=== PATIENT | male | born 1940 | race Two or more races ===

== ENCOUNTER → 2021-05-31 | Outpatient (CLI) | payer MEDICARE ==
[~2021-05-31] MED LIST: CHOL5000 PO; METO-247 PO; SIMV40TA18 PO
== END ==
LOC: LAB 10:36
PROVIDERS: ATTEND Podiatrist
DX: Z01.818 Encounter for other preprocedural examination (principal); M21.41 Flat foot [pes planus] (acquired), right foot
CPT/HCPCS: 36415; 82306; 82310; 84134

== ENCOUNTER 2021-06-19 07:39 | Day surgery (SDC) | payer MEDICARE ==
[~2021-06-19] VITALS: Ht 165.1 cm; Wt 70.0 kg
[~2021-06-19 07:39] MED LIST changes: +HYDROmorphone 2 MG/ML VIAL IVP PRN; +IV RINGERS,LACTATED 1000ML 1,000 ML IV SCH; +MORPHINE SULFATE 2 MG/ML INJ. IVP PRN; +PROCHLORPERAZINE 10 MG/2 ML VIAL. IVP PRN; +ceFAZolin SODIUM IV Push 1 GM VIAL. IVP PRN; +fentaNYL PF VIAL 100 MCG/2 ML VIAL IVP PRN
[2021-06-19 08:10] VITALS: BP 203/86
--- NOTE | 2021-06-19 08:37 | PDOC1 ---
History and Physical Date of Admission Date of Admission DATE: 06/19/21 TIME: 08:25 Identification/Chief Complaint Chief Complaint Foot and ankle surgery Source Source: Chart review, Patient History of Present Illness History of Present Illness Patient 80-year-old male with past medical history HLD, HTN, chronic right ankle pain, who presents to outpatient surgical clinic for right ankle surgery, per Dr. Perez. Reports history of chronic ankle pain for a number of years is worse with ambulation. Today he has no specific concerns or complaints, except for some anxiety due to upcoming surgery. He is scheduled to undergo ambulatory surgery today for pes planus of his right foot and right ankle pain. Past Medical History Past Medical History HTN, HLD Past Surgical History Past Surgical History: Hernia Repair Family History Family History Denies significant family history Social History Smoke: No ALCOHOL: none Drugs: None Current Medications Current Medications Current Medications Fentanyl Citrate (Fentanyl 2ml Vial) 25 mcg PRN Q5MIN PRN IVP MILD PAIN 1-3; Start 06/19/21 at 06:00; Stop 06/19/21 at 20:00 Fentanyl Citrate (Fentanyl 2ml Vial) 50 mcg PRN Q5MIN PRN IVP MODERATE PAIN 4- 6; Start 06/19/21 at 06:00; Stop 06/19/21 at 20:00 Morphine Sulfate (Morphine Sulfate) 1 mg PRN Q10MIN PRN IVP SEVERE PAIN 7-10; Start 06/19/21 at 06:00; Stop 06/19/21 at 20:00 Ringer's Solution 1,000 ml @ 30 mls/hr Q24H IV Last administered on 06/19/21at 08:23; Start 06/19/21 at 06:00; Stop 06/19/21 at 17:59 Hydromorphone HCl (Dilaudid) 0.5 mg PRN Q10MIN PRN IVP SEVERE PAIN 7-10, 2nd CHOICE; Start 06/19/21 at 06:00; Stop 06/19/21 at 20:00 Prochlorperazine Edisylate (Compazine) 5 mg PACU PRN PRN IVP NAUSEA, MRX1; Start 06/19/21 at 06:00; Stop 06/19/21 at 20:00 Cefazolin Sodium/ Dextrose 50 ml @ 100 mls/hr 1X PREOP PRN IV PRIOR TO PROCEDURE; Start 06/19/21 at 06:00; Stop 06/19/21 at 18:00; Status Cancel Cefazolin Sodium (Ancef) 1 gm 1X PREOP PRN IVP PRIOR TO PROCEDURE; Start 06/19/21 at 06:00 Active Scripts Active Reported Vitamin D3 (Vitamin D) 125 Mcg Capsule 50,000 Mcg PO WEEKLY 5,000 UNITS = 125 MCG Simvastatin 40 Mg Tablet 40 Mg PO DAILY Metoprolol Succinate ( Xl ) (Metoprolol Succinate) 100 Mg Tab.er.24h 100 Mg PO DAILY Allergies Allergies: Coded Allergies: No Known Drug Allergies (Unverified , 06/19/21) ROS Review of System GENERAL: No history of weight change, weakness or fevers. SKIN: No bruising, hair changes or rashes. EYES: No blurred, double or loss of vision. NOSE AND THROAT: No history of nosebleeds, hoarseness or sore throat. HEART: Denies chest pain, denies palpitations. LUNGS: Denies cough, hemoptysis, wheezing or shortness of breath. GASTROINTESTINAL: Denies nausea, vomiting, abdominal pain. GENITOURINARY: Denies dysuria, frequency, urgency, hematuria. NEUROLOGIC: Denies history of numbness, tingling, tremor or weakness. PSYCHIATRIC: Denies anxiety, denies depression. ENDOCRINE: No history of heat or cold intolerance, polyuria or polydipsia. EXTREMITIES: Denies muscle weakness, joint pain, pain on walking or stiffness. Physical Exam Physical Exam General: Alert, Oriented X3, Cooperative, No acute distress HEENT: PERRLA, EOMI Lungs: Clear to auscultation, Normal air movement Heart: RRR, no murmurs Cardiovascular: S1, S2 Abdomen: Normal bowel sounds, Soft, No tenderness Extremities: No clubbing, No cyanosis Skin: No rashes, No significant lesion Neuro: Normal speech, Normal tone, Sensation intact Psych/Mental Status: Mental status NL, Mood NL Vitals Vitals Vital Signs Date Time Temp Pulse Resp B/P (MAP) Pulse Ox O2 Delivery O2 Flow Rate FiO2 06/19/21 08:13 97.3 59 18 203/86 99 Room Air 97.3 Images Images PATIENT: CONCHITA RAMIREZ ACCOUNT: [id number] : 1940 LOCATION: [facility] AGE: 80 SEX: M EXAM STATUS: PRE CLI ORD. PHYSICIAN: BRIAN PEREZ DPM REASON: RT ANKLE PAIN PROCEDURE: ANKLE RIGHT 3V EXAM: Left ankle, 3 views; left foot, 3 views. HISTORY: Pain. COMPARISON: None. FINDINGS: 3 views of the left ankle and foot are obtained. There is no acute f racture, dislocation or subluxation. There is lucency involving the talar dome likely due to degenerative subchondral cyst formation or bone demineralization. No convincing osteochondral lesion is seen. There is a tiny suspected chronic nonunited avulsion fracture fragment inferior to the medial malleolus. There is mild tibiotalar spurring. There is a prominent os trigonum. There is enthesopathy at the Achilles tendon insertion. There is complete loss of the first metatarsal phalangeal joint space with severe degenerative subchondral cyst formation, spurring and bony remodeling. IMPRESSION: 1. 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 2. Mild tibiotalar joint osteoarthritis. 3. Suspected tiny chronic nonunited avulsion fracture fragment inferior to the medial malleolus. PATIENT: CONCHITA RAMIREZ ACCOUNT: [id number] : 1940 LOCATION: [facility] AGE: 80 SEX: M EXAM STATUS: PRE CLI ORD. PHYSICIAN: BRIAN PEREZ DPM REASON: RT FOOT PAIN PROCEDURE: FOOT RIGHT 3V EXAM: Left ankle, 3 views; left foot, 3 views. HISTORY: Pain. COMPARISON: None. FINDINGS: 3 views of the left ankle and foot are obtained. There is no acute fracture, dislocation or subluxation. There is lucency involving the talar dome likely due to degenerative subchondral cyst formation or bone demineralization. No convincing osteochondral lesion is seen. There is a tiny suspected chronic nonunited avulsion fracture fragment inferior to the medial malleolus. There is mild tibiotalar spurring. There is a prominent os trigonum. There is enthesopathy at the Achilles tendon insertion. There is complete loss of the first metatarsal phalangeal joint space with severe degenerative subchondral cyst formation, spurring and bony remodeling. IMPRESSION: 1. 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 2. Mild tibiotalar joint osteoarthritis. 3. Suspected tiny chronic nonunited avulsion fracture fragment inferior to the medial malleolus. VTE Prophylaxis Ordered VTE Prophylaxis Devices: No VTE Pharmacological Prophylaxi: No Assessment/Plan Assessment/Plan Pes planus right foot Right ankle pain Right foot pain HTN FEN - Cardiac diet PPX - Ambulatory FULL CODE Dispo - outpatient Plan: Scheduled to undergo right subtalar joint, talonavicular joint fusion, gastrocnemius resection, and possible first tarsometatarsal arthrodesis. Anticipate no surgical complications and discharge home today. Justifications for Admission Other Justification TWILA RAYMUNDO MD Jun 19, 2021 08:37
[2021-06-19] MEDS ORDERED: PROPOFOL 10 MG/ML (20ML) VIAL. IV ONE (08:49)
[2021-06-19] MEDS ORDERED: DEXAMETHASONE SOD PHOS 4 MG/ML VIAL ONE (08:49)
[2021-06-19] MEDS ORDERED: LIDOCAINE 2% PF 5 ML VIAL. ONE (08:49)
[2021-06-19] MEDS ORDERED: ONDANSETRON PF 4 MG/2 ML VIAL. ONE (08:49)
[2021-06-19] MEDS ORDERED: ROCURONIUM 50 MG/5 ML VIAL. ONE (08:50)
[2021-06-19] MEDS ORDERED: fentaNYL PF VIAL 100 MCG/2 ML VIAL ONE ×2 (08:50→14:32)
[2021-06-19] MEDS ORDERED: hydrALAZINE 20 MG/ML VIAL. IVP ONE ×2 (10:30)
[2021-06-19] MEDS ORDERED: BUPIVACAINE MPF 0.25% 30 ML VIAL. ONE (10:44)
[2021-06-19] MEDS ORDERED: BUPIVACAINE MPF 0.5% 30 ML VIAL. ONE ×2 (10:44→15:21)
[2021-06-19] MEDS ORDERED: ePHEDrine PF IN SALINE 50 MG/10 ML SYRINGE. IV ONE (11:31)
[2021-06-19] MEDS ORDERED: ceFAZolin SODIUM IV Push 1 GM VIAL. IVP ONE (14:26)
[2021-06-19] MEDS ORDERED: VANCOMYCIN 1 GM VIAL. ONE (14:46)
[2021-06-19] MEDS ORDERED: SEVOFLURANE > 120 MINUTES. IH ONE (15:37)
--- NOTE | 2021-06-19 15:44 | PDOC4 ---
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 Anesthesia Type: General Blood Loss: 20 cc Specimans Obtained: None Findings: Significantly reduced arch height with at least 50% TMJ and coverage, soft medial first metatarsal head, mild to minimal erosive changes to the dorsal medial aspect of talar head. The calcaneus cyst laterally to the tibia with decreased calcaneal inclination angle. The subtalar joint however does not show any erosive changes or cartilage erosion. Passive ankle joint dorsiflexion noted 5 degrees without any hindrance to the subtalar joint reduction preoperatively Slightly soft bone throughout the joint preparation. Completely ruptured degenerated PT tendon approximately 2 to 4 cm proximal from the insertion site. Upon tendon sheath incision, there was moderate colored fluid from the PT tendon sheath. First MTPJ although stiff but asymptomatic or limiting. Patient and I agreed to leave that joint in tact preoperatively. Complications: None Operative Note: Under mild sedation, patient was brought into the operating room and placed on the operative table in a supine position. A formal timeout was performed to confirm patient's identity, procedure and procedure site. Following IV prophylactic antibiotics and general anesthesia induction, a well-padded right thigh tourniquet was placed. The right lower extremity was then scrubbed, prepped and draped using aseptic techniques. Intraoperative x-ray was utilized to provisionally syd and plan for the medial incision by marking out the subtalar facet, TNJ, medial midline distal tibia. Then the right lower extremity was then exsanguinated and the pressure cuff was inflated to 250 millimercury. A linear incision was carried out approximately 0.5 cm distal from the distal medial malleolus extending from the posterior subtalar facet anteriorly to the navicular cuneiform joint. The incision was carried deep with a combination of sharp and blunt dissection with care to protect and retract all the neurovascular bundles. At this time, superficial deltoid ligament and deep fascia was encountered and then incised along the PT tendon sheath to allow adequate joint visualization and also avoid neurovascular bundle violation posterior and plantar to the FDL. At this time, mild to moderate amount of straw-colored synovitic drainage was encountered from the PT tendon sheath. The PT tendon was severely degenerated with a full rupture site approximately 2 cm proximal from the insertion site. The degenerated PT tendon was excised as it was not salvageable and was in the visual field of subtalar joint preparation. Then the FDL was identified just plantar to the PT tendon and it was mobilized plantarly to gain access to the subtalar joint. The subtalar joint was established and the joint capsule was incised including the deep deltoid ligament. The TCL was incised with a rongeur and the joint access was gained with a smooth lamina tattoo designer. Intraoperative findings was insignificant for erosive changes across the subtalar articular surface. The articular cartilage across the posterior, middle and anterior subtalar joint was denuded with a combination of a rongeur, an osteotome, a curette and a bur. Copious saline solution was used to irrigate the fusion site. Subchondral fenestration was achieved with a combination of 2 mm drill bit and a small osteotome. Paprika sign was appreciated across the fusion site. Then the attention was directed to the TNJ where a medial dorsal linear capsulotomy was achieved with a #15 blade, just superior to the PT tendon course. The periosteum was elevated dorsally across the TNJ with a bone elevator and care to protect and retract all the dorsal lateral neurovascular bundles. A coaxial capsulotomy across the TNJ was carried out and the dorsal and plantar capsular ligament was incised to gain visualization across the entire articular surface. Again, smooth lamina tattoo designer was engaged to maintain the joint visualization. Articular cartilage was denuded with a combination of a rongeur, an osteotome, curette and a bur. Subchondral fenestration was achieved with a combination of 2 mm drill bit and a small osteotome. Copious saline solution was used to irrigate the fusion site. Paprika sign was appreciated across the fusion site. Then the tension was directed to the distal medial malleolus at the midline approximately 5 cm proximal to the ankle joint line. A 1.5 millimeter linear s kin incision was made and the incision was carried deep to the periosteum layer with a Cornelia. Following the manufacture protocol, a corticotomy was performed with a hand instrument and advanced to approximately 1 cm laterally. Then using the guidance of the intraoperative x-ray, a 6 mm bone harvester was introduced to the medial surface of the malleolus advanced and laterally to the cancellous canal without penetrating or violating the lateral cortex or posterior cortex. Approximately 15 cc of cancellous bone/BMA was harvested from the distal medial malleolus. Then the site of harvest station was irrigated with saline and then closed in layers with 4-0 Monocryl and 4-0 nylon. The subtalar joint was reduced and a temporarily fixed with 2 guidepins for 7 mm screws from distal posterior calcaneus to dorsal talar body/neck margin, and anterior talar neck/ head intraoperative x-ray remarked adequate methodist of the calcaneal height, apposition across the subtalar joint, satisfactory hardware position within the calcaneal body without violating the tarsal tunnel. The posterior distal calcaneal skin was incised at the guidewire sites and carried to deep bluntly to the periosteum layer. Using standard AO technique, two 7 mm partially-threaded, cannulated screws were placed over the guidepins to compress and stabilize the subtalar joint. Adequate hardware position, length were verified on x-ray. Then approximately 6 cc of cancellous bone/BMA was impacted into the subtalar joint for adequate apposition and augment osseous union. The TNJ was reduced using with less maneuver and then temporarily fixated with K wires. Proper x-ray remarked adequate to TNJ apposition, restored Meary's angle and Benjie's angle. Then a William 5 hole plate was placed over the dorsal medial aspect of the TNJ. Using standard AO technique, a combination of locking and nonlocking 3.5 millimeter screws were used to compress and fixate the TNJ with an intraplate compression slot. Intraoperative x-ray remarked adequate hardware position, apposition across the TNJ without violating the surrounding particular surfaces. Then approximately 9 cc of cancellous bone/BMA was impacted across the fusion site to encourage adequate union. Then the deltoid and deep tissue capsule was repaired with 0 Vicryl. The decision was made against transferring the FDL for PT tendon rupture as the literature has documented 90% offloading across the PT tendon with TNJ fusion. The surgical site was irrigated with copious saline. After deep tissue capsule closure, 0.5 gram of vancomycin powder was applied to the surgical wound site to prevent soft tissue infection. Then all the surgical sites were closed in layers with 3-0 Vicryl, 4 Monocryl, 4-0 nylon. 20 cc of 0.5%percent Marcaine plain was used for postoperative anesthesia augmentation. The surgical sites were then dressed with Betadine soaked Adaptic, 4 x 4 gauze. A well-padded J ones compression splint was applied to the right lower extremity. Tourniquet was deflated and adequate digital perfusion was noted. Patient tolerated anesthesia and procedure well with neurovascular status intact to the surgical lower extremity. Patient will be transferred to PACU for continuous recovery. Pending right lower extremity ankle and foot x-ray. BRIAN PEREZ DPM Jun 19, 2021 15:44
[2021-06-19] MEDS ORDERED: GABAPENTIN 100 MG CAPSULE. PO ONE (15:45)
[2021-06-19] MEDS ORDERED: ACETAMINOPHEN 325 MG TABLET. PO ONE (15:45)
[2021-06-19] MEDS ORDERED: oxyCODONE/APAP 5/325 1 TAB TABLET PO ONE (15:45)
[2021-06-19] MEDS ORDERED: ACET500T68 PO (16:13)
[2021-06-19] MEDS ORDERED: IBUP-1007 PO (16:13)
[2021-06-19] MEDS ORDERED: GABA300C18 PO (16:13)
[2021-06-19] MEDS ORDERED: HYDR-2761 PO (16:13)
[2021-06-19 16:34] VITALS: BP 154/58
[2021-06-19] MEDS ORDERED: ASPI-630 PO (17:27)
--- NOTE | 2021-06-19 20:02 | RAD ---
XR EXAM OF ANKLE_RIGHT 3VIEWS, XR FOOT_RIGHT 3 VIEWS 06/19/2021 3:45 PM INDICATION: Postoperative COMPARISON: Right foot and ankle radiograph 05/21/2021 TECHNIQUE: 3 views the right foot and 3 views the right ankle are provided. FINDINGS/ IMPRESSION: Overlapping cast material limits evaluation of fine osseous detail. There is medial plate with 4 scre ws fixating the hindfoot. There are 2 partially threaded screws involving the calcaneus. There is a s crew track tibia. Tibial plafond and talar dome appear intact. There is advanced joint space narrowing involving the first metatarsophalangeal joint with subcortica l erosive changes with overhanging and over anterior marginal osteophytosis. Differential considerati ons would include erosive osteoarthrosis versus crystalline arthropathy. Electronically signed by: Qian De Paz MD (06/19/2021 8:00 PM) MAULIK
== END 2021-06-19 17:20 | disposition home or self-care (01) ==
LOC: SURG 07:39
PROVIDERS: ATTEND Podiatrist
DX: M21.41 Flat foot [pes planus] (acquired), right foot (principal); G89.29 Other chronic pain; I10 Essential (primary) hypertension; E78.00 Pure hypercholesterolemia, unspecified; M19.90 Unspecified osteoarthritis, unspecified site; Z79.899 Other long term (current) drug therapy; Z98.890 Other specified postprocedural states; Z87.891 Personal history of nicotine dependence; Z79.82 Long term (current) use of aspirin
CPT/HCPCS: 28725; 28740; 73610; 73630; A4209; A4930; A6223; A6253; A6402; A6449; A6450; C1713; C1769; J0690; J1100; J2405; J2704; J3010; J3370; J3490; 76000; A4223; A4657; A6455